=== PATIENT | female | born 1980 ===

== ENCOUNTER 2021-02-28 21:38 | Emergency (ER) | payer MEDICAID ==
[2021-02-28 23:26] LABS: Bacteria,Urine 1+ /HPF (Negative); Bilirubin,Urine NEG (Negative); Blood,Urine NEG (Negative); Color,Urine Yellow (Yellow); Hyaline Casts,Urine 2 /LPF; Protein,Urine <15 mg/dL mg/dL (Negative); Urobilinogen,Urine < 2.0 mg/dL (<2.0)
--- NOTE | 2021-02-28 23:47 | Emergency Department Report ---
ED General Adult HPI - General Chief complaint: Anxiety Stated complaint: PANIC ATTACK Time Seen by Provider: 02/28/21 22:48 Source: EMS Mode of arrival: Stretcher Limitations: No Limitations - History of Present Illness Initial comments: Is a 41-year-old female who presents for near syncopal episode today. Patient states she was standing in conversing with friends and started to feel flushed and dizziness. Patient rates symptoms at 4/10 at this time exacerbated by movement. Symptoms are relieved by nothing tried. Patient denies fevers or chills no history, no asthma or bronchitis. Severity scale (0 -10): 0 - Related Data Previous Rx's Medication Instructions Recorded Last Taken Type Ibuprofen [Motrin 800 MG tab] 800 mg PO Q8HR PRN #30 tablet 03/01/21 Unknown Rx Allergies Allergy/AdvReac Type Severity Reaction Status Date / Time No Known Allergies Allergy Verified 02/28/21 21:49 ED Review of Systems ROS: Stated complaint: PANIC ATTACK Other details as noted in HPI Constitutional: malaise Eyes: denies: eye pain, eye discharge, vision change ENT: congestion. denies: ear pain, throat pain Respiratory: denies: cough, shortness of breath, wheezing Cardiovascular: denies: chest pain, palpitations, paroxysmal nocturnal dyspnea Endocrine: no symptoms reported Gastrointestinal: abdominal pain, nausea, vomiting, diarrhea. denies: constipation, melena Genitourinary: denies: urgency, dysuria, discharge Musculoskeletal: denies: back pain, joint swelling, arthralgia Skin: denies: rash, lesions Neurological: denies: headache, weakness, numbness, paresthesias, confusion, vertigo Psychiatric: anxiety Hematological/Lymphatic: denies: easy bleeding, easy bruising ED Past Medical Hx - Past Medical History Additional medical history: Anxiety - Surgical History Past Surgical History?: No - Social History Smoking Status: Never Smoker Substance Use Type: None - Medications Home Medications: Home Medications Medication Instructions Recorded Confirmed Last Taken Type Ibuprofen [Motrin 800 MG tab] 800 mg PO Q8HR PRN #30 tablet 03/01/21 Unknown Rx ED Physical Exam - General Limitations: No Limitations General appearance: alert, in no apparent distress - Head Head exam: Present: atraumatic, normocephalic - Eye Eye exam: Present: normal appearance, PERRL, EOMI Pupils: Present: normal accommodation - ENT ENT exam: Present: normal exam, mucous membranes moist, TM's normal bilaterally, normal external ear exam - Neck Neck exam: Present: normal inspection, full ROM. Absent: tenderness, meningismus, lymphadenopathy, thyromegaly - Respiratory Respiratory exam: Present: normal lung sounds bilaterally. Absent: respiratory distress, wheezes, rales, rhonchi, stridor, chest wall tenderness - Cardiovascular Cardiovascular Exam: Present: regular rate, normal rhythm, normal heart sounds. Absent: systolic murmur, diastolic murmur, rubs, gallop - GI/Abdominal GI/Abdominal exam: Present: soft, normal bowel sounds. Absent: distended, tenderness, guarding, rebound, bruit, hernia - Rectal Rectal exam: Present: deferred - Extremities Exam Extremities exam: Present: normal inspection, full ROM, normal capillary refill. Absent: tenderness - Back Exam Back exam: Present: normal inspection, full ROM. Absent: CVA tenderness (R), CVA tenderness (L) - Neurological Exam Neurological exam: Present: alert, oriented X3, CN II-XII intact, normal gait, reflexes normal. Absent: motor sensory deficit - Expanded Neurological Exam Expanded Patient oriented to: Present: person, place, time Speech: Present: fluid speech Cranial nerves: EOM's Intact: Normal Cerebellar function: Finger to Nose: Normal Motor strength exam: RUE: 5, LUE: 5, RLE: 5, LLE: 5 Best Eye Response ([place]): (4) open spontaneously Best Motor Response ([place]): (6) obeys commands Best Verbal Response ([place]): (5) oriented [place] Total: 15 - Psychiatric Psychiatric exam: Present: normal affect, normal mood - Skin Skin exam: Present: warm, dry, intact, normal color. Absent: rash ED Course Vital Signs 02/28/21 21:51 Temperature 97.2 F L Pulse Rate 92 H Respiratory 16 Rate Blood Pressure 152/92 [Right] O2 Sat by Pulse 92 Oximetry ED Medical Decision Making - Lab Data Result diagrams: 02/28/21 23:50 02/28/21 23:50 Labs 02/28/21 02/28/21 02/28/21 23:09 23:50 23:50 WBC 6.5 RBC 4.70 Hgb 12.2 Hct 38.0 MCV 81 MCH 26 L MCHC 32 RDW 13.8 Plt Count 424 Lymph % (Auto) 19.2 [place] % (Auto) 6.3 Eos % (Auto) 0.6 Baso % (Auto) 0.6 Lymph # (Auto) 1.3 [place] # (Auto) 0.4 Eos # (Auto) 0.0 Baso # (Auto) 0.0 Seg Neutrophils % 73.3 H Seg Neutrophils # 4.8 Sodium 139 Potassium 3.8 Chloride 101.7 Carbon Dioxide 23 Anion Gap 18 BUN 20 H Creatinine 0.9 Estimated GFR > 60 BUN/Creatinine Ratio 22 Glucose 101 H Calcium 9.3 Total Bilirubin 0.30 AST 12 ALT 8 Alkaline Phosphatase 62 Troponin T < 0.010 Total Protein 7.4 Albumin 4.3 Albumin/Globulin Ratio 1.4 Urine Color Yellow Urine Turbidity Clear Urine pH 6.0 Ur Specific [place] 1.013 Urine Protein <15 mg/dl Urine Glucose (UA) Neg Urine Ketones Neg Urine Blood Neg Urine Nitrite Neg Urine Bilirubin Neg Urine Urobilinogen < 2.0 Ur Leukocyte Esterase Neg Urine WBC (Auto) 2.0 Urine RBC (Auto) 2.0 U Epithel Cells (Auto) < 1.0 Urine Bacteria (Auto) 1+ Hyaline Casts 2 - EKG Data EKG shows normal: sinus rhythm, axis, intervals, QRS complexes, ST-T waves Rate: normal - EKG Data When compared to previous EKG there are: previous EKG unavailable Interpretation: normal EKG (NSR No STEMI, interp by ed attending, ) - Radiology Data Radiology results: report reviewed, image reviewed CHEST 2 VIEWS INDICATION / CLINICAL INFORMATION: syncope. Panic attack. COMPARISON: None available. FINDINGS: SUPPORT DEVICES: None. HEART / MEDIASTINUM: No significant abnormality. LUNGS / PLEURA: No significant pulmonary or pleural abnormality. No pneumothorax. ADDITIONAL FINDINGS: No significant additional findings. IMPRESSION: 1. No acute findings. Signer Name: Shaneka Sears MD Signed: 02/28/2021 11:53 PM Workstation Name: [id number] Transcribed By: DT Dictated By: Cholo Sears MD Electronically Authenticated By: Cholo Sears MD Signed Date/Time: 02/28/21 8640 - Medical Decision Making Heart score is 0, EKG normal sinus rhythm no ST elevated WI interpreted by ED attending, chest x-ray is normal no opacities no infiltrate. Labs are normal, this is likely stress versus anxiety. Patient has history of same. Plan DC to home, diagnosis atypical chest pain, NSAIDs as needed pain follow-up with your primary care doctor in 2 to 3 days. Patient will return to ED should symptoms worsen patient verbalized agreement understanding discharge plan patient will be DC'd home in stable condition at this time. Critical care attestation.: If time is entered above; I have spent that time in minutes in the direct care of this critically ill patient, excluding procedure time. ED Disposition Clinical Impression: Chest pain Qualifiers: Chest pain type: other chest pain Qualified Code(s): R07.89 - Other chest pain; R07.8 - Other chest pain Disposition: 01 HOME / SELF CARE / HOMELESS Is pt being admited?: No Does the pt Need Aspirin: No Condition: Stable Instructions: Nonspecific Chest Pain, Adult, Nonspecific Chest Pain, Adult, [id number] Additional Instructions: Take medications as prescribed, follow-up with your doctor in 2 to 3 days. Return to emergency department should symptoms worsen. Prescriptions: Ibuprofen [Motrin 800 MG tab] 800 mg PO Q8HR PRN #30 tablet PRN Reason: pain Referrals: GERI LEWIS MD [Staff Physician] - 3-5 Days Forms: Work/School Release Form(ED) Time of Disposition: 00:58
--- NOTE | 2021-02-28 23:57 | XRay Report ---
CHEST 2 VIEWS INDICATION / CLINICAL INFORMATION: syncope. Panic attack. COMPARISON: None available. FINDINGS: SUPPORT DEVICES: None. HEART / MEDIASTINUM: No significant abnormality. LUNGS / PLEURA: No significant pulmonary or pleural abnormality. No pneumothorax. ADDITIONAL FINDINGS: No significant additional findings. IMPRESSION: 1. No acute findings. Signer Name: Shaneka Sears MD Signed: 02/28/2021 11:53 PM Workstation Name: [id number]
[2021-03-01 00:24] LABS: Basophils % (Auto) 0.6 % (0.0-1.8); Eosinophils % (Auto) 0.6 % (0.0-4.3); Hemoglobin 12.2 gm/dl (10.1-14.3); Lymphocytes # (Auto) 1.3 K/mm3 (1.2-5.4); Lymphocytes % (Auto) 19.2 % (13.4-35.0); Mean Corpuscular HGB Conc 32 % (30-34); Mean Corpuscular Volume 81 fl (79-97); Monocytes # (Auto) 0.4 K/mm3 (0.0-0.8); Monocytes % (Auto) 6.3 % (0.0-7.3); Platelet Count 424 K/mm3 (140-440); Red Cell Distribution Width 13.8 % (13.2-15.2)
[2021-03-01 00:37] LABS: Alanine Aminotransferase 8 units/L (7-56); Albumin 4.3 g/dL (3.9-5); BUN/Creatinine Ratio 22; Blood Urea Nitrogen 20 mg/dL (7-17); Calcium 9.3 mg/dL (8.4-10.2); Hemolysis Index 2
[2021-03-01 01:51] VITALS: BP 112/39
--- NOTE | 2021-03-01 13:09 | Electrocardiograph Report ---
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
== END 2021-03-01 02:39 | disposition home or self-care (01) ==
LOC: ED 21:38
DX: R07.89 Other chest pain (principal); R55 Syncope and collapse; F41.9 Anxiety disorder, unspecified; Z79.899 Other long term (current) drug therapy
CPT/HCPCS: 36415; 71046; 80053; 81001; 84484; 85025; 93005; 99284